=== PATIENT | female | born 1975 | race Caucasian/White ===

== ENCOUNTER 2018-08-23 23:33 | Emergency (ER) | payer OTHER ==
[~2018-08-23] VITALS: Ht 165.1 cm; Wt 84.1 kg
[2018-08-24] MEDS ORDERED: PRED20TA PO (03:47)
[2018-08-24 03:48] VITALS: BP 140/89
[2018-08-24] MEDS ORDERED: predniSONE 20 MG TAB PO ONE (04:00)
[2018-08-24] MEDS ORDERED: LISI10TA4 PO (04:13)
[2018-08-24] MEDS ORDERED: NORE1TAB7 PO (04:13)
== END 2018-08-24 04:13 | disposition home or self-care (01) ==
LOC: M ED 23:33
DX: T78.3XXA Angioneurotic edema, initial encounter (principal); X58.XXXA Exposure to other specified factors, initial encounter; Y92.89 Other specified places as the place of occurrence of the external cause; I10 Essential (primary) hypertension; Z79.899 Other long term (current) drug therapy